=== PATIENT | male | born 1985 | race Caucasian/White ===

== ENCOUNTER 2017-04-16 16:01 | Emergency (ER) | payer MEDICAID, OTHER ==
[2017-04-16 16:02] VITALS: BMI 23.6
[2017-04-16 16:19] VITALS: TEMP 98.3; O2SAT 100
--- NOTE | 2017-04-16 16:46 | ED PDOC ---
Arrival/HPI - General Chief Complaint: Abdominal Pain Time Seen by Provider: 04/16/17 16:24 Historian: Patient - History of Present Illness Narrative History of Present Illness (Text): 04/16/17 16:46 This 32 yo male with pmh opiods abuse, presents to this ED c/o RUQ abdominal pain x 2 weeks. Patient admits similar intermittent abdominal pain x 1 year. Patient feels fatigue, for last week. Patient stated that after eating sausage , and fired eggs this morning, his RUQ abdominal pain worsen. Patient sometimes feels nauseous. Patient denies vomiting, sob, cp, constipation, diarrhea, urinary symptoms, fever, skin rash, dizziness, or abnormal gait. Patient stated he has not use illegal drug since he started on suboxen. Denies alcohol abuse. Patient admits taking supplement for GYM Time/Duration: Other (see hpi) Quality: Aching Context: Home Past Medical History - Provider Review Nursing Documentation Reviewed: Yes - Past History Past History: No Previous - Infectious Disease Hx of Infectious Diseases: None - Past Medical History Past Medical History: No Previous - Cardiac Hx Hypertension: No - Pulmonary Hx Tuberculosis: No - Neurological Hx Seizures: No - Hematological/Oncological Hx Hepatitis C: Yes (Blood work to be done Friday per patient) - Musculoskeletal/Rheumatological Hx Falls: No - Genitourinary/Gynecological Hx Sexually Transmitted Diseases: No - Psychiatric Hx Substance Use: Yes Other/Comment: Substance Abuse - Past Surgical History Past Surgical History: No Previous - Surgical History Hx Appendectomy: Yes - Anesthesia Hx Anesthesia: Yes Hx Anesthesia Reactions: No - Suicidal Assessment Feels Threatened In Home Enviroment: No Family/Social History - Physician Review Nursing Documentation Reviewed: Yes Family/Social History: Other (noncontributory) Smoking Status: Heavy Smoker > 10 Cigarettes Daily Hx Alcohol Use: No Hx Substance Use: Yes Substance used: heroin Hx Substance Use Treatment: Yes Allergies/Home Meds Allergies/Adverse Reactions: Allergies walnuts Allergy (Severe, Uncoded 04/16/17 16:19) ANAPHYLAXIS Home Medications: Home Meds Medication Instructions Recorded Confirmed Buprenorphine HCl/Naloxone HCl 16 mg PO DAILY 04/16/17 04/16/17 [Suboxone 8 mg-2 mg Sl Film] Review of Systems - Review of Systems Constitutional: Normal. absent: Fatigue, Weight Change, Fevers Eyes: Normal ENT: Normal Respiratory: Normal. absent: SOB, Cough Cardiovascular: Normal. absent: Chest Pain Gastrointestinal: Abdominal Pain, Nausea. absent: Constipation, Diarrhea, Vomiting Genitourinary Male: Normal. absent: Dysuria, Hematuria Musculoskeletal: Back Pain (chronic back pain) Skin: Normal Neurological: Normal. absent: Headache, Dizziness, Focal Weakness, Gait Changes , Speech Changes, Facial Droop, Disequilibrium Endocrine: Normal Hemo/Lymphatic: Normal Psychiatric: Normal Physical Exam Vital Signs Temp Pulse Resp BP Pulse Ox 04/16/17 16:19 98.3 F 84 18 127/74 100 Temperature: Afebrile Blood Pressure: Normal Pulse: Regular Respiratory Rate: Normal Appearance: Positive for: Well-Appearing, Non-Toxic, Comfortable Pain Distress: None Mental Status: Positive for: Alert and Oriented X 3 - Systems Exam Head: Present: Atraumatic, Normocephalic Pupils: Present: PERRL Extroacular Muscles: Present: EOMI Conjunctiva: Present: Normal Mouth: Present: Moist Mucous Membranes Neck: Present: Normal Range of Motion Respiratory/Chest: Present: Clear to Auscultation, Good Air Exchange. No: Respiratory Distress, Accessory Muscle Use Cardiovascular: Present: Regular Rate and Rhythm, Normal S1, S2. No: Murmurs Abdomen: Present: Tenderness ((+) mild RUQ tenderness on palpation. No rebound , or guarding), Normal Bowel Sounds. No: Distention, Peritoneal Signs Back: Present: Normal Inspection Upper Extremity: Present: Normal Inspection. No: Cyanosis, Edema Lower Extremity: Present: Normal Inspection. No: Edema Neurological: Present: GCS=15, CN II-XII Intact, Speech Normal Skin: Present: Warm, Dry, Normal Color. No: Rashes Psychiatric: Present: Alert, Oriented x 3, Normal Insight, Normal Concentration Medical Decision Making ED Course and Treatment: 04/16/17 19:19 Re-evaluation. Patient feels better. Discussed results and plan with patient who expresses understanding. All questions answered and there is agreement with the plan to discharge home with instructions. Patient stable for discharge. Return if symptoms persist or worsen. Patient stated abdominal pain has improved. Patient feels better and he wishes to be discharge home soon. Abdomen is soft, nt/nd I told patient to reviewed labs, and ultrasound report which mention about fatty liver. Patient understood plan. Re-evaluation Time: 19:20 Reassessment Condition: Re-examined, Improved - Lab Interpretations Lab Results: 04/16/17 16:48 04/16/17 16:48 Lab Results 04/16/17 17:25: Urine Color Yellow, Urine Appearance Clear, Urine pH 6.0, Ur Specific [place] 1.025, Urine Protein Negative, Urine Glucose (UA) Negative, Urine Ketones Negative, Urine Blood Small H, Urine Nitrate Negative, Urine Bilirubin Negative, Urine Urobilinogen 0.2, Ur Leukocyte Esterase Negative, Urine RBC 2 - 5, Urine WBC 0 - 2, Ur Epithelial Cells 0 - 2 04/16/17 16:48: Sodium 141, Potassium 4.1, Chloride 103, Carbon Dioxide 26, Anion Gap 16, BUN 16, Creatinine 0.8, Est GFR ( Amer) > 60, Est GFR (Non- Af Amer) > 60, Random Glucose 102, Calcium 9.3, Total Bilirubin 0.3, AST 26, ALT 33, Alkaline Phosphatase 62, Total Protein 6.9, Albumin 4.3, Globulin 2.6, Albumin/Globulin Ratio 1.6, Lipase 43 04/16/17 16:48: WBC 6.5, RBC 4.91, Hgb 14.1, Hct 41.1 L, MCV 83.7, MCH 28.7, MCHC 34.3, RDW 12.6, Plt Count 184, MPV 10.7, Gran % 56.9, Lymph % (Auto) 32.4, [place] % (Auto) 5.7, Eos % (Auto) 4.7, Baso % (Auto) 0.3, Gran # 3.67, Lymph # 2.1 , [place] # 0.4, Eos # 0.3, Baso # 0.02 - RAD Interpretation Narrative RAD Interpretations (Text): 04/16/17 19:02 HISTORY: RUQ abd. pain COMPARISON: CT abdomen and pelvis with IV contrast performed 07/06/13, abdominal ultrasound performed 07/06/13 TECHNIQUE: Sonographic evaluation of the abdomen. FINDINGS: LIVER: Measures 15.3 cm in sagittal dimension. Echogenic liver may be seen in setting of hepatic parenchymal disease or fatty infiltration. No focal hepatic mass identified. The main portal vein appears patent with normal directional flow. No intrahepatic bile duct dilatation. GALLBLADDER: No gallstones. No gallbladder wall thickening. Negative sonographic Whalen's sign as assessed by the boat officer. COMMON BILE DUCT: Measures 4 mm. PANCREAS: Not well visualized. RIGHT KIDNEY: Measures 11.1 x 4.4 x 4.8 cm. No obstructing calculus or hydronephrosis identified. Prominent renal pelvis. LEFT KIDNEY: Measures 11.2 x 5.4 x 5.3 cm. No obstructing calculus or hydronephrosis identified. SPLEEN: Measures approximately 10.6 cm. AORTA: Limited views appear unremarkable. IVC: Limited views appear unremarkable. OTHER FINDINGS: None. IMPRESSION: Echogenic liver may be seen in setting of hepatic parenchymal disease or fatty infiltration. Prominent right renal pelvis. Radiology Orders: 04/16/17 16:46 ABDOMEN COMPLETE [US] Stat - Medication Orders Current Medication Orders: Discontinued Medications Famotidine (Pepcid) 20 mg IVP STAT STA Stop: 04/16/17 16:47 Last Admin: 04/16/17 17:16 Dose: 20 mg IVP Administration Document 04/16/17 17:16 HI (Rec: 04/16/17 17:16 [id number] Charges for Administration # of IVP Administrations 1 Ondansetron HCl (Zofran Inj) 4 mg IVP STAT STA Stop: 04/16/17 16:47 Last Admin: 04/16/17 17:16 Dose: 4 mg IVP Administration Document 04/16/17 17:16 HI (Rec: 04/16/17 17:16 [id number] Charges for Administration # of IVP Administrations 1 Disposition/Present on Arrival - Present on Arrival Any Indicators Present on Arrival: No History of DVT/PE: No History of Uncontrolled Diabetes: No Urinary Catheter: No History of Decub. Ulcer: No History Surgical Site Infection Following: None - Disposition Have Diagnosis and Disposition been Completed?: Yes Diagnosis: Nonspecific abdominal pain, Fatty liver Disposition: HOME/ ROUTINE Disposition Time: 19:20 Patient Plan: Discharge Patient Problems: Current Active Problems Problem Status Onset Fatty liver Acute Nonspecific abdominal pain Acute Condition: IMPROVED Discharge Instructions (ExitCare): Non-Alcoholic Fatty Liver Disease (ED), Abdominal Pain (ED) Additional Instructions: Call private doctor for follow up visit in 1-2 days. Do not take supplement for the GYM or other medication till clear by your doctor. Referrals: [facility] Tatyana Clemons, [Primary Care Provider] - Follow up with primary [facility] [Outside] - Follow up with primary [facility] [Outside] - Follow up with primary Forms: [employer] (Azerbaijani), WORK NOTE
[2017-04-16 16:59] LABS: BASO # 0.02 K/mm3 (0.0-2.0); BASO % 0.3 % (0.0-3.0); EOS # 0.3 (0.0-0.7); EOS % 4.7 % (1.5-5.0); GRAN # 3.67 (1.4-6.5); GRAN % 56.9 % (50.0-68.0); HEMOGLOBIN 14.1 g/dL (14.0-18.0); LYMPH # 2.1 (1.2-3.4); LYMPH % 32.4 % (22.0-35.0); MEAN CELL VOLUME 83.7 fl (80.0-105.0); MEAN CORPUSCULAR HEMOGLOBIN 28.7 pg (25.0-35.0); MEAN CORPUSCULAR HGB CONC 34.3 g/dl (31.0-37.0); MEAN PLATELET VOLUME 10.7 fl (7.0-11.0); MONO # 0.4 (0.1-0.6); MONO % 5.7 % (1.0-6.0); RBC 4.91 10^6/uL (3.5-6.1); RED CELL DISTRIBUTION WIDTH 12.6 % (11.5-14.5); WHITE BLOOD COUNT 6.5 10^3/ul (4.5-11.0)
[2017-04-16 17:11] LABS: ALB/GLOB RATIO 1.6 (1.1-1.8); ALBUMIN 4.3 g/dL (3.0-4.8); ALT/SGPT 33 U/L (7-56); AST/SGOT 26 U/L (17-59); BLOOD UREA NITROGEN 16 mg/dL (7-21); CALCIUM 9.3 mg/dL (8.4-10.5); GFR AFRICAN-AMERICAN > 60; GFR NON-AFRICAN AMERICAN > 60; LIPASE 43 U/L (23-300)
[2017-04-16 17:48] LABS: URINE BILIRUBIN NEGATIVE (NEGATIVE); URINE BLOOD SMALL (NEGATIVE); URINE GLUCOSE (UA) NEGATIVE (NEGATIVE); URINE LEUKOCYTE ESTERASE NEGATIVE Leu/uL (NEGATIVE); URINE NITRATE NEGATIVE (NEGATIVE); URINE PROTEIN NEGATIVE mg/dL (<30 mg/dL); URINE UROBILINOGEN 0.2 E.U./dL (<1 E.U./dL)
[2017-04-16 18:01] LABS: URINE COLOR YELLOW (YELLOW)
[2017-04-16 18:02] LABS: URINE APPEARANCE CLEAR (CLEAR)
[2017-04-16 18:06] LABS: URINE EPITHELIAL CELLS 0 - 2 /hpf (0-5); URINE WBC 0 - 2 /hpf (0-6)
--- NOTE | 2017-04-16 18:19 | US ---
HISTORY: RUQ abd. pain COMPARISON: CT abdomen and pelvis with IV contrast performed 07/06/13, abdominal ultrasound performed 07/06/13 TECHNIQUE: Sonographic evaluation of the abdomen. FINDINGS: LIVER: Measures 15.3 cm in sagittal dimension. Echogenic liver may be seen in setting of hepatic parenchymal disease or fatty infiltration. No focal hepatic mass identified. The main portal vein appears patent with normal directional flow. No intrahepatic bile duct dilatation. GALLBLADDER: No gallstones. No gallbladder wall thickening. Negative sonographic Whalen's sign as assessed by the candlemaker. COMMON BILE DUCT: Measures 4 mm. PANCREAS: Not well visualized. RIGHT KIDNEY: Measures 11.1 x 4.4 x 4.8 cm. No obstructing calculus or hydronephrosis identified. Prominent renal pelvis. LEFT KIDNEY: Measures 11.2 x 5.4 x 5.3 cm. No obstructing calculus or hydronephrosis identified. SPLEEN: Measures approximately 10.6 cm. AORTA: Limited views appear unremarkable. IVC: Limited views appear unremarkable. OTHER FINDINGS: None. IMPRESSION: Echogenic liver may be seen in setting of hepatic parenchymal disease or fatty infiltration. Prominent right renal pelvis.
[2017-04-16 19:34] VITALS: BP 128/78; PULSE 80; RESP 16
== END 2017-04-16 19:34 | disposition home or self-care (01) ==
LOC: ED 16:01
DX: K76.0 Fatty (change of) liver, not elsewhere classified (principal); R10.11 Right upper quadrant pain; F17.210 Nicotine dependence, cigarettes, uncomplicated
CPT/HCPCS: 76700; 80053; 81001; 83690; 85025; 96374; 96375; 99283; J2405

== ENCOUNTER 2017-06-15 16:51 | Emergency (ER) | payer OTHER ==
[2017-06-15 16:59] VITALS: BMI 24.3
--- NOTE | 2017-06-15 17:22 | ED PDOC ---
Arrival/HPI - General Chief Complaint: Male Genitourinary Time Seen by Provider: 06/15/17 17:01 Historian: Patient - Critical Care Narrative Critical Care (Text): 06/15/17 17:10 Patient is a 32 yo male with past medical history includes substance abuse, presents to the Ed with a prickly/burning sensation in penis with frequency with voiding for he past 3 days. Patient reports having unprotected sex before his symptoms started. Patient denies vomiting, sob, chest pain, constipation, diarrhea, urinary symptoms, fever, skin rash, dizziness, or abnormal gait. - History of Present Illness Narrative History of Present Illness (Text): 06/15/17 18:28 Patient is a 32 yo male with past medical history includes substance abuse, presents to the Ed with a prickly/burning sensation in penis with frequency with voiding for the past 3 days. Patient reports having unprotected sex before his symptoms started. Patient denies vomiting, sob, chest pain, constipation, diarrhea, urinary symptoms, fever, skin rash, dizziness, or abnormal gait. Symptom Onset: Sudden Symptom Course: Unchanged Quality: Other (prickly sensation) Severity Level: Mild Activities at Onset: Rest Context: Home Past Medical History - Provider Review Nursing Documentation Reviewed: Yes - Travel History Have you recently traveled outside [place] w/in the past 3 mons?: No - Past History Past History: No Previous - Infectious Disease Hx of Infectious Diseases: None - Past Medical History Past Medical History: No Previous - Cardiac Hx Hypertension: No - Pulmonary Hx Tuberculosis: No - Neurological Hx Seizures: No - Hematological/Oncological Hx Hepatitis C: Yes (Blood work to be done Friday per patient) - Musculoskeletal/Rheumatological Hx Falls: No - Genitourinary/Gynecological Hx Sexually Transmitted Diseases: No - Psychiatric Hx Substance Use: Yes Other/Comment: Substance Abuse - Past Surgical History Past Surgical History: No Previous - Surgical History Hx Appendectomy: Yes - Anesthesia Hx Anesthesia: Yes Hx Anesthesia Reactions: No - Suicidal Assessment Feels Threatened In Home Enviroment: No Family/Social History - Physician Review Nursing Documentation Reviewed: Yes Family/Social History: Unknown Family HX Smoking Status: Heavy Smoker > 10 Cigarettes Daily Hx Alcohol Use: Yes Frequency of alcohol use: Socially Hx Substance Use: Yes Substance used: heroin Hx Substance Use Treatment: Yes Allergies/Home Meds Allergies/Adverse Reactions: Allergies walnuts Allergy (Severe, Uncoded 04/16/17 16:19) ANAPHYLAXIS Home Medications: Home Meds Medication Instructions Recorded Confirmed Buprenorphine HCl/Naloxone HCl 16 mg PO DAILY 04/16/17 06/15/17 [Suboxone 8 mg-2 mg Sl Film] Review of Systems - Review of Systems Constitutional: Normal Eyes: Normal ENT: Normal Respiratory: Normal Cardiovascular: Normal Gastrointestinal: Normal. absent: Abdominal Pain, Stool Changes, Constipation, Diarrhea, Nausea, Vomiting, Appetite Changes, Hematochezia, Hematemesis, Anorexia, Food Intolerance, Other Genitourinary Male: Dysuria, Frequency. absent: Normal, Hematuria, Urinary Output Changes, Other Musculoskeletal: Normal Skin: Normal Neurological: Normal Endocrine: Normal Hemo/Lymphatic: Normal Psychiatric: Normal Physical Exam Vital Signs Reviewed: Yes Vital Signs Temp Pulse Resp BP Pulse Ox 06/15/17 18:47 72 18 116/78 98 06/15/17 17:23 98.3 F 68 18 112/62 99 06/15/17 16:52 98.7 F 64 18 112/62 98 Temperature: Afebrile Blood Pressure: Normal Pulse: Regular Respiratory Rate: Normal Appearance: Positive for: Well-Appearing, Non-Toxic, Comfortable Pain Distress: None Mental Status: Positive for: Alert and Oriented X 3 - Systems Exam Head: Present: Atraumatic, Normocephalic Respiratory/Chest: Present: Clear to Auscultation, Good Air Exchange. No: Respiratory Distress, Accessory Muscle Use Cardiovascular: Present: Regular Rate and Rhythm, Normal S1, S2. No: Murmurs Abdomen: Present: Normal Bowel Sounds. No: Tenderness, Distention, Peritoneal Signs, Rebound, Guarding, McBurney's Point Tender, Rovsing's Sign Present, Hernias, Feeding Tubes, Ostomy Tubes, Mass/Organomegaly, Scars, Other Genitourinary Male: Present: Normal External Genitalia Back: Present: Normal Inspection. No: CVA Tenderness, Midline Tenderness, Paraspinal Tenderness, Pain with Leg Raise, Decubitus Ulcer, Other Upper Extremity: Present: Normal Inspection. No: Cyanosis, Edema Lower Extremity: Present: Normal Inspection. No: Edema Neurological: Present: GCS=15, CN II-XII Intact, Speech Normal Skin: Present: Warm, Dry, Normal Color. No: Rashes Psychiatric: Present: Alert, Oriented x 3, Normal Insight, Normal Concentration Medical Decision Making ED Course and Treatment: 06/15/17 17:21 Impression Patient is a 32 yo male with past medical history includes substance abuse, presents to the Ed with a prickly/burning sensation in penis with frequency with voiding for he past 3 days after having unprotected sex with a new partner. Plan UA GC Ppx Tx assess and dispo Progress Note Informed pt of neg UA and prophylactic tx planned for GC; pt verbalized acknowledgement and agreed to Tx counseled pt on safe sex Pt stable on DC and ambulated well out of the ED - Lab Interpretations Lab Results: Lab Results 06/15/17 17:48: Urine Color Light yellow, Urine Appearance Clear, Urine pH 7.0, Ur Specific [place] 1.020, Urine Protein Negative, Urine Glucose (UA) Negative, Urine Ketones Negative, Urine Blood Trace-intact H, Urine Nitrate Negative, Urine Bilirubin Negative, Urine Urobilinogen 0.2, Ur Leukocyte Esterase Negative , Urine RBC 0 - 2, Urine WBC Negative, Ur Epithelial Cells 0 - 2, Urine Bacteria Mod I have reviewed the lab results: Yes (GC pending, otherwise UA wnl) - Medication Orders Current Medication Orders: Discontinued Medications Azithromycin (Zithromax) 1,000 mg PO STAT STA PRN Reason: Protocol Stop: 06/15/17 17:25 Last Admin: 06/15/17 18:40 Dose: 1,000 mg Ceftriaxone Sodium (Rocephin) 250 mg IM STAT STA PRN Reason: Protocol Stop: 06/15/17 17:46 Last Admin: 06/15/17 18:40 Dose: 250 mg IM Administration Charges Document 06/15/17 18:40 GMD (Rec: 06/15/17 18:41 GMD [id number]) Injection Site MAR Injection Site Right Gluteus Gera Charges for Administration # of IM Administrations 1 Disposition/Present on Arrival - Present on Arrival Any Indicators Present on Arrival: Yes History of DVT/PE: No History of Uncontrolled Diabetes: No Urinary Catheter: No History of Decub. Ulcer: No History Surgical Site Infection Following: None - Disposition Have Diagnosis and Disposition been Completed?: Yes Diagnosis: Dysuria Disposition: HOME/ ROUTINE Disposition Time: 18:29 Patient Plan: Discharge Condition: GOOD Discharge Instructions (ExitCare): Dysuria, Adult (DC) Additional Instructions: Dear Monico, Thank you for letting us take care of you today. The emergency medical care you received today was directed at your acute symptoms and your were given preventative treatment. It may take several days for your symptoms to resolve. Return to the Emergency Department if your symptoms worsen, do not improve, or if you have any other problems. Please contact your doctor or call one of the physicians/clinics you have been referred to that are listed on the Patient Visit Information form that is included in your discharge packet. Bring any paperwork you were given at discharge with you along with any medications you are taking to your follow up visit. Our treatment cannot replace ongoing medical care by a primary care provider (PCP) outside of the emergency department. Thank you for allowing the [facility] team to be part of your care today. All the best to you, KATERINE Mcnamara Referrals: [facility] Profile Req, [Primary Care Provider] - Follow up with primary Forms: charming charlie (Nepalese)
[2017-06-15 17:34] VITALS: RESP 18
[2017-06-15] MEDS ORDERED: cefTRIAXone (Rocephin) 250 mg Inj IM STA (17:45)
[2017-06-15 18:05] LABS: URINE APPEARANCE CLEAR (CLEAR); URINE BILIRUBIN NEGATIVE (NEGATIVE); URINE BLOOD TRACE-INTACT (NEGATIVE); URINE COLOR LIGHT YELLOW (YELLOW); URINE GLUCOSE (UA) NEGATIVE (NEGATIVE); URINE LEUKOCYTE ESTERASE NEGATIVE Leu/uL (NEGATIVE); URINE PROTEIN NEGATIVE mg/dL (<30 mg/dL); URINE UROBILINOGEN 0.2 E.U./dL (<1 E.U./dL)
[2017-06-15 18:11] VITALS: TEMP 98.3
[2017-06-15 18:47] VITALS: BP 116/78; PULSE 72; O2SAT 98
[2017-06-15 19:06] LABS: URINE BACTERIA MOD (NEG); URINE EPITHELIAL CELLS 0 - 2 /hpf (0-5); URINE RBC 0 - 2 /hpf (0-2); URINE WBC NEGATIVE /hpf (0-6)
== END 2017-06-15 18:47 | disposition home or self-care (01) ==
LOC: ED 16:51
DX: R30.0 Dysuria (principal)
CPT/HCPCS: 81001; 87491; 87591; 96372; 99284; J0696